=== PATIENT | female | born 1990 | race American Indian/Alaskan Native ===

== ENCOUNTER 2021-04-02 07:48 | Observation (INO) | payer OTHER ==
--- NOTE | 2021-04-02 08:04 | Emergency Department Report ---
ED Abdominal Pain HPI - General Chief Complaint: Abdominal Pain Stated Complaint: ABD PAIN X2 DAYS PUI?: Yes Time Seen by Provider: 04/02/21 08:02 Source: patient, EMS ( EMS documentation not available at time of chart di ctation ), RN notes reviewed Mode of arrival: Stretcher Limitations: No Limitations, Physical Limitation - History of Present Illness Initial Comments: The patient was evaluated in the emergency department for symptoms described in the history of present illness. He/she was evaluated in the context of the g lobal COVID-19 pandemic, which necessitated consideration that the patient might be at risk for infection with the virus that causes COVID-19. Institutional protocols and algorithms that pertain to the evaluation of patients at risk for COVID-19 are in a state of rapid change based on information released by regulatory bodies including the CDC and federal and state organizations. These policies and algorithms were followed during the patient's care in the emergency department. Please note that these policies, procedures and recommendations changed on a rapid basis. Patient is a 30-year-old female. She is not known to myself previously. She states that she is not . She believes that she has a history of kidney infection and/or renal colic. She presents to the ER today with a complaint of nontraumatic epigastric and right upper quadrant pain that radiates to the back. There is nausea. She denies urinary symptoms. She denies fever. Her pain is sharp and intense. It increases with palpation. It decreases with rest, position, and hydromorphone. This is more intense and is similar to prior episodes of upper abdominal pain that she has experienced in the past. She denies Covid symptomatology. MD Complaint: abdominal pain -: Gradual Location: RUQ, epigastric Radiation: R flank, back Severity: severe Severity scale (0 -10): 10 Consistency: intermittent Improves With: medication Worsens With: other (Per history of present illness) Associated Symptoms: nausea - Related Data Home Medications Medication Instructions Recorded Confirmed Last Taken No Known Home Medications [No 04/02/21 04/02/21 Unknown Reported Home Medications] Allergies Allergy/AdvReac Type Severity Reaction Status Date / Time No Known Allergies Allergy Unverified 04/02/21 07:52 ED Review of Systems ROS: Stated complaint: ABD PAIN X2 DAYS Other details as noted in HPI Constitutional: malaise, weakness. denies: fever Eyes: denies: eye discharge ENT: denies: epistaxis Respiratory: denies: cough Cardiovascular: denies: chest pain Gastrointestinal: abdominal pain, nausea Genitourinary: denies: dysuria Musculoskeletal: back pain Neurological: weakness Psychiatric: anxiety ED Past Medical Hx - Past Medical History Previous Medical History?: Yes Additional medical history: hxo kidney infection - Social History Smoking Status: Current Every Day Smoker - Medications Home Medications: Home Medications Medication Instructions Recorded Confirmed Last Taken Type No Known Home Medications [No 04/02/21 04/02/21 Unknown History Reported Home Medications] ED Physical Exam - General Limitations: Physical Limitation General appearance: alert, anxious, in distress, obese - Head Head exam: Present: atraumatic, normocephalic - Eye Eye exam: Present: normal appearance, EOMI. Absent: nystagmus - ENT ENT exam: Present: normal exam, normal orophraynx, mucous membranes moist, normal external ear exam - Neck Neck exam: Present: normal inspection, full ROM. Absent: tenderness, meningismus - Respiratory Respiratory exam: Present: normal lung sounds bilaterally. Absent: respiratory distress, wheezes, rales, rhonchi, stridor, decreased breath sounds - Cardiovascular Cardiovascular Exam: Present: regular rate, normal rhythm, normal heart sounds. Absent: bradycardia, tachycardia, irregular rhythm, systolic murmur, diastolic murmur, rubs, gallop - GI/Abdominal GI/Abdominal exam: Present: soft, tenderness (Right upper quadrant pain, tenderness, voluntary guarding), guarding, rebound. Absent: distended, pulsati le mass - Extremities Exam Extremities exam: Present: normal inspection, full ROM, other (2+ pulses noted in the bilateral upper and lower extremities. There is no palpable cord. negative Homans sign. Muscular compartments are soft. The pelvis is stable.). Absent: pedal edema, calf tenderness - Back Exam Back exam: Present: normal inspection, CVA tenderness (R). Absent: tenderness, CVA tenderness (L), muscle spasm, paraspinal tenderness, vertebral tenderness - Neurological Exam Neurological exam: Present: alert, oriented X3, other (No facial droop. Tongue midline. Extraocular movements intact bilaterally. Facial sensation intact to light touch in V1, V2, V3 distribution bilaterally. 5 and a 5 strength in 4 extremities. Sensation intact to light touch in 4 extremities.). Absent: motor sensory deficit - Psychiatric Psychiatric exam: Present: anxious - Skin Skin exam: Present: warm, dry, intact, normal color. Absent: rash ED Course Vital Signs 04/02/21 04/02/21 04/02/21 07:56 08:19 08:25 Temperature 98.5 F Pulse Rate 94 H 96 H Respiratory 20 14 20 Rate Blood Pressure Blood Pressure 129/79 [Left] O2 Sat by Pulse 98 98 100 Oximetry 04/02/21 04/02/21 04/02/21 08:31 08:45 09:31 Temperature Pulse Rate 93 H 90 79 Respiratory 24 19 16 Rate Blood Pressure 118/75 Blood Pressure [Left] O2 Sat by Pulse 97 98 Oximetry ED Medical Decision Making - Lab Data Result diagrams: 04/02/21 08:09 04/02/21 Unknown Vital Signs 04/02/21 04/02/21 04/02/21 07:56 08:19 08:25 Temperature 98.5 F Pulse Rate 94 H 96 H Respiratory 20 14 20 Rate Blood Pressure Blood Pressure 129/79 [Left] O2 Sat by Pulse 98 98 100 Oximetry 04/02/21 04/02/21 04/02/21 08:31 08:45 09:31 Temperature Pulse Rate 93 H 90 79 Respiratory 24 19 16 Rate Blood Pressure 118/75 Blood Pressure [Left] O2 Sat by Pulse 97 98 Oximetry Lab Results 04/02/21 04/02/21 04/02/21 Range/Units 08:09 08:09 08:09 WBC 8.8 (4.5-11.0) K/mm3 RBC 4.37 (3.65-5.03) M/mm3 Hgb 13.2 (10.1-14.3) gm/dl Hct 39.1 (30.3-42.9) % MCV 89 (79-97) fl MCH 30 (28-32) pg MCHC 34 (30-34) % RDW 14.0 (13.2-15.2) % Plt Count 426 (140-440) K/mm3 Lymph % (Auto) 29.3 (13.4-35.0) % Bates % (Auto) 8.0 H (0.0-7.3) % Eos % (Auto) 0.6 (0.0-4.3) % Baso % (Auto) 0.6 (0.0-1.8) % Lymph # (Auto) 2.6 (1.2-5.4) K/mm3 Bates # (Auto) 0.7 (0.0-0.8) K/mm3 Eos # (Auto) 0.1 (0.0-0.4) K/mm3 Baso # (Auto) 0.0 (0.0-0.1) K/mm3 Seg Neutrophils % 61.5 (40.0-70.0) % Seg Neutrophils # 5.4 (1.8-7.7) K/mm3 Sodium (137-145) mmol/L Potassium (3.6-5.0) mmol/L Chloride (98-107) mmol/L Carbon Dioxide (22-30) mmol/L Anion Gap mmol/L BUN (7-17) mg/dL Creatinine (0.6-1.2) mg/dL Estimated GFR ml/min BUN/Creatinine Ratio % Glucose (65-100) mg/dL Lactic Acid (0.7-2.0) mmol/L Calcium (8.4-10.2) mg/dL Magnesium 2.20 (1.7-2.3) mg/dL Total Bilirubin 2.70 H (0.1-1.2) mg/dL Direct Bilirubin 1.1 H (0-0.2) mg/dL Indirect Bilirubin 1.6 mg/dL AST 164 H (5-40) units/L ALT 264 H (7-56) units/L Alkaline Phosphatase 203 H (35-129) units/L Total Creatine Kinase 165 H (30-135) units/L Total Protein 8.4 H (6.3-8.2) g/dL Albumin 4.2 (3.9-5) g/dL Albumin/Globulin Ratio 1.0 % Lipase 29 (13-60) units/L HCG, Quant < 2 (0-4) mIU/mL Urine Color (Yellow) Urine Turbidity (Clear) Urine pH (5.0-7.0) Ur Specific Hardtner (1.003-1.030) Urine Protein (Negative) mg/dL Urine Glucose (UA) (Negative) mg/dL Urine Ketones (Negative) mg/dL Urine Blood (Negative) Urine Nitrite (Negative) Urine Bilirubin (Negative) Urine Ictotest (Negative) Urine Urobilinogen (<2.0) mg/dL Ur Leukocyte Esterase (Negative) Urine WBC (Auto) (0.0-6.0) /HPF Urine RBC (Auto) (0.0-6.0) /HPF U Epithel Cells (Auto) (0-13.0) /HPF Urine Mucus /HPF Urine Opiates Screen Urine Methadone Screen Acetaminophen (10.0-30.0) ug/mL Ur Barbiturates Screen Ur Phencyclidine Scrn Ur Amphetamines Screen U Benzodiazepines Scrn Urine Cocaine Screen U Marijuana (THC) Screen Drugs of Abuse Note 04/02/21 04/02/21 04/02/21 Range/Units 08:12 08:12 09:26 WBC (4.5-11.0) K/mm3 RBC (3.65-5.03) M/mm3 Hgb (10.1-14.3) gm/dl Hct (30.3-42.9) % MCV (79-97) fl MCH (28-32) pg MCHC (30-34) % RDW (13.2-15.2) % Plt Count (140-440) K/mm3 Lymph % (Auto) (13.4-35.0) % Bates % (Auto) (0.0-7.3) % Eos % (Auto) (0.0-4.3) % Baso % (Auto) (0.0-1.8) % Lymph # (Auto) (1.2-5.4) K/mm3 Bates # (Auto) (0.0-0.8) K/mm3 Eos # (Auto) (0.0-0.4) K/mm3 Baso # (Auto) (0.0-0.1) K/mm3 Seg Neutrophils % (40.0-70.0) % Seg Neutrophils # (1.8-7.7) K/mm3 Sodium (137-145) mmol/L Potassium (3.6-5.0) mmol/L Chloride (98-107) mmol/L Carbon Dioxide (22-30) mmol/L Anion Gap mmol/L BUN (7-17) mg/dL Creatinine (0.6-1.2) mg/dL Estimated GFR ml/min BUN/Creatinine Ratio % Glucose (65-100) mg/dL Lactic Acid (0.7-2.0) mmol/L Calcium (8.4-10.2) mg/dL Magnesium (1.7-2.3) mg/dL Total Bilirubin (0.1-1.2) mg/dL Direct Bilirubin (0-0.2) mg/dL Indirect Bilirubin mg/dL AST (5-40) units/L ALT (7-56) units/L Alkaline Phosphatase (35-129) units/L Total Creatine Kinase (30-135) units/L Total Protein (6.3-8.2) g/dL Albumin (3.9-5) g/dL Albumin/Globulin Ratio % Lipase (13-60) units/L HCG, Quant (0-4) mIU/mL Urine Color Marcella (Yellow) Urine Turbidity Clear (Clear) Urine pH 5.0 (5.0-7.0) Ur Specific Hardtner 1.032 H (1.003-1.030) Urine Protein 100 mg/dl (Negative) mg/dL Urine Glucose (UA) 50 (Negative) mg/dL Urine Ketones Neg (Negative) mg/dL Urine Blood Neg (Negative) Urine Nitrite Neg (Negative) Urine Bilirubin Mod (Negative) Urine Ictotest Positive (Negative) Urine Urobilinogen 4.0 (<2.0) mg/dL Ur Leukocyte Esterase Mod (Negative) Urine WBC (Auto) 74.0 H (0.0-6.0) /HPF Urine RBC (Auto) 38.0 (0.0-6.0) /HPF U Epithel Cells (Auto) 8.0 (0-13.0) /HPF Urine Mucus 3+ /HPF Urine Opiates Screen Negative Urine Methadone Screen Negative Acetaminophen 5.0 L (10.0-30.0) ug/mL Ur Barbiturates Screen Negative Ur Phencyclidine Scrn Negative Ur Amphetamines Screen Negative U Benzodiazepines Scrn Negative Urine Cocaine Screen Negative U Marijuana (THC) Screen Negative Drugs of Abuse Note Disclamer 04/02/21 04/02/21 Range/Units 09:26 Unknown WBC (4.5-11.0) K/mm3 RBC (3.65-5.03) M/mm3 Hgb (10.1-14.3) gm/dl Hct (30.3-42.9) % MCV (79-97) fl MCH (28-32) pg MCHC (30-34) % RDW (13.2-15.2) % Plt Count (140-440) K/mm3 Lymph % (Auto) (13.4-35.0) % Bates % (Auto) (0.0-7.3) % Eos % (Auto) (0.0-4.3) % Baso % (Auto) (0.0-1.8) % Lymph # (Auto) (1.2-5.4) K/mm3 Bates # (Auto) (0.0-0.8) K/mm3 Eos # (Auto) (0.0-0.4) K/mm3 Baso # (Auto) (0.0-0.1) K/mm3 Seg Neutrophils % (40.0-70.0) % Seg Neutrophils # (1.8-7.7) K/mm3 Sodium 141 (137-145) mmol/L Potassium 4.0 (3.6-5.0) mmol/L Chloride 103.2 (98-107) mmol/L Carbon Dioxide 19 L (22-30) mmol/L Anion Gap 23 mmol/L BUN 9 (7-17) mg/dL Creatinine 0.7 (0.6-1.2) mg/dL Estimated GFR > 60 ml/min BUN/Creatinine Ratio 13 % Glucose 112 H (65-100) mg/dL Lactic Acid 2.30 H* (0.7-2.0) mmol/L Calcium 9.9 (8.4-10.2) mg/dL Magnesium (1.7-2.3) mg/dL Total Bilirubin (0.1-1.2) mg/dL Direct Bilirubin (0-0.2) mg/dL Indirect Bilirubin mg/dL AST (5-40) units/L ALT (7-56) units/L Alkaline Phosphatase (35-129) units/L Total Creatine Kinase (30-135) units/L Total Protein (6.3-8.2) g/dL Albumin (3.9-5) g/dL Albumin/Globulin Ratio % Lipase (13-60) units/L HCG, Quant (0-4) mIU/mL Urine Color (Yellow) Urine Turbidity (Clear) Urine pH (5.0-7.0) Ur Specific Hardtner (1.003-1.030) Urine Protein (Negative) mg/dL Urine Glucose (UA) (Negative) mg/dL Urine Ketones (Negative) mg/dL Urine Blood (Negative) Urine Nitrite (Negative) Urine Bilirubin (Negative) Urine Ictotest (Negative) Urine Urobilinogen (<2.0) mg/dL Ur Leukocyte Esterase (Negative) Urine WBC (Auto) (0.0-6.0) /HPF Urine RBC (Auto) (0.0-6.0) /HPF U Epithel Cells (Auto) (0-13.0) /HPF Urine Mucus /HPF Urine Opiates Screen Urine Methadone Screen Acetaminophen (10.0-30.0) ug/mL Ur Barbiturates Screen Ur Phencyclidine Scrn Ur Amphetamines Screen U Benzodiazepines Scrn Urine Cocaine Screen U Marijuana (THC) Screen Drugs of Abuse Note - EKG Data -: EKG Interpreted by Me EKG shows normal: sinus rhythm Rate: normal - EKG Data When compared to previous EKG there are: previous EKG unavailable 04/02/21 12:05 EKG is interpreted at 08: 4 0 Sinus rhythm, 73 bpm. Normal axis, normal intervals, motion artifact, b orderline high left ventricular voltage. Abnormal EKG. Not a STEMI. - Radiology Data Radiology results: pending, report reviewed, image reviewed ULTRASOUND ABDOMEN, LIMITED (RIGHT UPPER QUADRANT) INDICATION: abd pain transaminits COMPARISON: CT abdomen and pelvis today LIMITATIONS: None FINDINGS: Pancreas: Visualized portion shows no significant abnormality. Liver: Slight patchy fatty infiltration. Liver is at the upper end of the normal range in size and has a length of 17.9 cm. No focal masses are seen. Gallbladder: Several gallstones are seen. No gallbladder wall thickening is noted. Bile ducts: Normal. Common Bile Duct measures 5 mm. Right Kidney: Visualized portions show no abnormality. Free fluid: None. Additional Findings: None. IMPRESSION: Cholelithiasis. No gallbladder wall thickening is seen. However, the technologist reports a positive Talley's sign. Signer Name: Praful Kaur MD Signed: 04/02/2021 10:[address] ABDOMEN AND PELVIS WITH CONTRAST INDICATION: Left side and back pain CONTRAST: 100 cc Omnipaque 300 IV COMPARISON: None available. All CT scans at this location are performed using CT dose reduction for ALARA by means of automated exposure control. FINDINGS: Lung bases are clear. No pneumoperitoneum is seen. Gallbladder shows what may be small calculi but no wall thickening seen. No biliary dilatation is noted.. Liver shows mild fatty infiltration and is moderately enlarged. Hepatic length measures 21.4 cm. Spleen is not enlarged. No abdominal masses are seen. No lymphadenopathy is noted. No urinary or bowel obstructive changes are seen. The appendix appears within normal limits except for the tip which is mildly dilated to 8 mm. However, the extreme tip shows gas and with wall thickening and I do not see surrounding inflammation. Small amount of high density material is seen in the expanded tip. I suspect this is a normal variant rather than an acute process. Small bilateral ovarian cysts are seen measuring up to 2.2 cm on the right, probably physiologic in this young patient. A small amount of free fluid is seen. No definite inflammatory changes are noted. IMPRESSION: 1. No abnormality is seen to explain the patient's left-sided symptomatology 2. Probable normal variant of the appendiceal anatomy as above 3. Small physiologic type ovarian cysts, greater on the right. Small amount of free fluid scattered in the pelvis possibly could relate to recent cyst rupture, more likely from the right. 4. Possible minimal cholelithiasis without acute change seen Signer Name: Praful Kaur MD Signed: 04/02/2021 10:21 AM Workstation Name: [id number] - Medical Decision Making Differential diagnosis, including but not limited to: Cholecystitis, renal colic, pyelonephritis, obstruction Assessment and plan: 30-year-old female, who is afebrile, with relatively tachycardic heart rate in the mid 90s, presenting with right upper quadrant pain and flank pain, found to have evidence of transaminitis, hyperbilirubinemia, pyuria. She is markedly tender, ruling in for systemic inflammatory response syndrome. She has an elevated lactic acid, uncertain of type I or type II lactic acidosis. Patient will be treated aggressively with pain medication, antibiotics, and appropriate IV fluids. Blood cultures, urine cultures will be obtained. Right upper quadrant ultrasound demonstrates positive sonographic Talley sign, as well as cholelithiasis. CT scan abdomen pelvis essentially unremarkable. Given concern for cholecystitis, transaminitis, and sepsis, have recommended admission to the medical service for the aforementioned conditions. The patient is agreeable to this plan of care. Contacted general surgeon on-call, Dr. Sánchez. Discussed history, physical, laboratory studies, imaging studies and plan of care/overall clinical impression. She will follow in consultation. Recommends fluids, antibiotics, n.p.o. status, and supportive care. Hospital physician, Dr. Simental, to admit patient to the medical service. Critical Care Time: Yes Critical care time in (mins) excluding proc time.: 35 Critical care attestation.: If time is entered above; I have spent that time in minutes in the direct care of this critically ill patient, excluding procedure time. ED Disposition Clinical Impression: Cholecystitis, SIRS (systemic inflammatory response syndrome), Transaminitis, Pyelonephritis Disposition: 09 ADMITTED INPATIENT Is pt being admited?: Yes Does the pt Need Aspirin: No Condition: Good Instructions: Abdominal Pain (ED) Referrals: PRIMARY CARE, [Primary Care Provider] - 3-5 Days
[2021-04-02 08:30] LABS: Basophils % (Auto) 0.6 % (0.0-1.8); Eosinophils # (Auto) 0.1 K/mm3 (0.0-0.4); Eosinophils % (Auto) 0.6 % (0.0-4.3); Hematocrit 39.1 % (30.3-42.9); Hemoglobin 13.2 gm/dl (10.1-14.3); Lymphocytes # (Auto) 2.6 K/mm3 (1.2-5.4); Lymphocytes % (Auto) 29.3 % (13.4-35.0); Mean Corpuscular HGB Conc 34 % (30-34); Mean Corpuscular Volume 89 fl (79-97); Monocytes # (Auto) 0.7 K/mm3 (0.0-0.8); Platelet Count 426 K/mm3 (140-440); Red Blood Count 4.37 M/mm3 (3.65-5.03)
[2021-04-02 08:35] LABS: Bilirubin,Urine MOD (Negative); Blood,Urine NEG (Negative); Color,Urine Amber (Yellow); Mucus,Urine 3+ /HPF
[2021-04-02 08:40] LABS: Amphetamine Screen,Urine Negative; Benzodiazepines Screen,Urine Negative; Cannabinoid Screen,Urine Negative; Cocaine Screen,Urine Negative; Methadone Screen,Urine Negative; Opiate Screen,Urine Negative
[2021-04-02 08:52] LABS: Albumin 4.2 g/dL (3.9-5); Bilirubin,Direct 1.1 mg/dL (0-0.2)
[2021-04-02] MEDS ORDERED: ONDANSETRON 4 MG/2 ML INJ IV ONE ×2 (09:14→09:36)
[2021-04-02] MEDS ORDERED: HYDROmorphone 1 MG/1 ML INJ IV ONE ×3 (09:14→12:14)
[2021-04-02] MEDS ORDERED: LACTATED RINGERS 1,000 ML IV ONE (09:14)
[2021-04-02 09:15] LABS: Ictotest,Urine Positive (Negative)
[2021-04-02 09:25] LABS: BUN/Creatinine Ratio 13; Blood Urea Nitrogen 9 mg/dL (7-17); Calcium 9.9 mg/dL (8.4-10.2); Hemolysis Index 11
--- NOTE | 2021-04-02 11:25 | Cat Scan Report ---
CT ABDOMEN AND PELVIS WITH CONTRAST INDICATION: Left side and back pain CONTRAST: 100 cc Omnipaque 300 IV COMPARISON: None available. All CT scans at this location are performed using CT dose reduction for ALARA by means of automated e xposure control. FINDINGS: Lung bases are clear. No pneumoperitoneum is seen. Gallbladder shows what may be small calc jonathan but no wall thickening seen. No biliary dilatation is noted.. Liver shows mild fatty infiltration and is moderately enlarged. Hepatic length measures 21.4 cm. Spleen is not enlarged. No abdominal ma sses are seen. No lymphadenopathy is noted. No urinary or bowel obstructive changes are seen. The appendix appears within normal limits except for the tip which is mildly dilated to 8 mm. However , the extreme tip shows gas and with wall thickening and I do not see surrounding inflammation. Small amount of high density material is seen in the expanded tip. I suspect this is a normal variant rath er than an acute process. Small bilateral ovarian cysts are seen measuring up to 2.2 cm on the right, probably physiologic in t his young patient. A small amount of free fluid is seen. No definite inflammatory changes are noted. IMPRESSION: 1. No abnormality is seen to explain the patient's left-sided symptomatology 2. Probable normal variant of the appendiceal anatomy as above 3. Small physiologic type ovarian cysts, greater on the right. Small amount of free fluid scattered i n the pelvis possibly could relate to recent cyst rupture, more likely from the right. 4. Possible minimal cholelithiasis without acute change seen Signer Name: Praful Kaur MD Signed: 04/02/2021 11:21 AM Workstation Name: [id number]
--- NOTE | 2021-04-02 11:26 | Ultrasound Report ---
ULTRASOUND ABDOMEN, LIMITED (RIGHT UPPER QUADRANT) INDICATION: abd pain transaminits COMPARISON: CT abdomen and pelvis today LIMITATIONS: None FINDINGS: Pancreas: Visualized portion shows no significant abnormality. Liver: Slight patchy fatty infiltration. Liver is at the upper end of the normal range in size and li s a length of 17.9 cm. No focal masses are seen. Gallbladder: Several gallstones are seen. No gallbladder wall thickening is noted. Bile ducts: Normal. Common Bile Duct measures 5 mm. Right Kidney: Visualized portions show no abnormality. Free fluid: None. Additional Findings: None. IMPRESSION: Cholelithiasis. No gallbladder wall thickening is seen. However, the technologist reports a positive Talley's sign. Signer Name: Praful Kaur MD Signed: 04/02/2021 11:22 AM Workstation Name: [id number]
[2021-04-02] MEDS ORDERED: PIPERACIL/TAZOBACTA 4.5/NS 100 4.5 GM/100 ML VIAL IV ONE (11:38)
[2021-04-02] MEDS ORDERED: LACTATED RINGERS 1,500 ML IV ONE (11:43)
[2021-04-02] MEDS ORDERED: HYDROmorphone 1 MG/1 ML INJ ONE (12:04)
[2021-04-02 12:20] LABS: Hepatitis C Virus Antibody Non-Reactive (NonReactive)
[2021-04-02 12:30] LABS: Hepatitis B Surface Antigen Nonreactive (Negative)
--- NOTE | 2021-04-02 12:33 | History and Physical Report ---
History of Present Illness Chief complaint: I have abdominal pain History of present illness: 30 YO Female with Nicotine Dependence, Nephrolithiasis presents to ED for evaluation. Patient reports "I have abdominal pain". Patient states that she has experienced abdominal pain over the past 2 days with persistent symptoms over the same timeframe. Patient states that pain is 10/10, intermittent, radiates to the right flank and back, associated with nausea, worsened with palpation, decreased with rest and position stability. Patient denies oral intake over the last 2 days due to the aforementioned symptoms. EMS was notified and upon arrival the patient was found to be in distress and subsequently transported to [facility] for further care and evaluation of the aforementioned symptoms. The patient was seen and evaluated in the emergency department. All lab and imaging studies reviewed. Patient underwent CT scan of the abdomen and pelvis as well as abdominal ultrasound which revealed findings consistent with symptomatic cholelithiasis, metabolic acidosis, elevated liver function test, as well as abnormal appearing appendix. Surgical team consulted. Patient placed in observation status and admitted to medical floor. Patient treated with IV fluid resuscitation therapy, bowel rest, pain control. Patient denies fever, chills, chest pain, palpitation, productive cough, skin rash, recent ill contacts, ingestion of food/water from new or different sources, or known exposure to COVID-19. No prior admission for review. No medication listed at time of admission for reconciliation. Past History Past Medical History: other (See HPI) Past Surgical History: No surgical history, Other (Reviewed) Social history: single, smoking Family history: diabetes, hypertension Medications and Allergies Allergies Allergy/AdvReac Type Severity Reaction Status Date / Time No Known Allergies Allergy Unverified 04/02/21 07:52 Home Medications Medication Instructions Recorded Confirmed Last Taken Type No Known Home Medications [No 04/02/21 04/02/21 Unknown History Reported Home Medications] Active Meds: Active Medications Lactated Ringer's (Lactated Ringers) 1,500 mls @ 999 mls/hr IV BOLUS ONE Stop: 04/02/21 13:13 Review of Systems Constitutional: no weight loss, no weight gain, no fever, no chills Ears, nose, mouth and throat: no ear pain, no ear discharge, no nasal congestion, no nasal discharge Breasts: no change in shape, no swelling, no mass Cardiovascular: no chest pain, no palpitations, no rapid/irregular heart beat, no edema, no lightheadedness Respiratory: no cough, no cough with sputum, no hemoptysis Gastrointestinal: abdominal pain, nausea, no vomiting, no diarrhea, no constipation, no coffee ground emesis, no hematochezia, no loss of appetite Genitourinary Female: no pelvic pain, no flank pain, no dysuria, no urinary frequency, no urgency Rectal: no pain, no incontinence, no bleeding Musculoskeletal: no neck stiffness, no shooting arm pain, no low back pain, no shooting leg pain, no leg numbness/tingling Integumentary: no rash, no redness, no sores, no wounds, no boils Neurological: no head injury, no paralysis, no parathesias, no numbness, no sei zures, no syncope, no ataxia Psychiatric: no anxiety, no change in sleep habits, no insomnia Endocrine: no cold intolerance, no heat intolerance, no excessive thirst, no polyuria, no nocturia Hematologic/Lymphatic: no easy bruising, no lymphadenopathy Allergic/Immunologic: no urticaria, no allergic rhinitis, no wheezing, no anaphylaxis Exam - Constitutional Vitals: Temp Pulse Resp BP Pulse Ox 98.5 F 79 16 118/75 98 04/02/21 07:56 04/02/21 09:31 04/02/21 09:31 04/02/21 09:31 04/02/21 09:31 General appearance: Present: mild distress - EENT Eyes: Present: PERRL ENT: hearing intact, clear oral mucosa - Neck Neck: Present: supple, normal ROM - Respiratory Respiratory effort: normal Respiratory: bilateral: CTA - Cardiovascular Heart Sounds: Present: S1 & S2. Absent: rub, click - Extremities Extremities: pulses symmetrical, No edema Peripheral Pulses: within normal limits - Abdominal General gastrointestinal: Present: soft, tender, non-distended, normal bowel sounds Localized gastrointestinal: tender: RLQ Female genitourinary: Present: normal - Integumentary Integumentary: Present: clear, warm, dry - Musculoskeletal Musculoskeletal: gait normal, strength equal bilaterally - Psychiatric Psychiatric: appropriate mood/affect, intact judgment & insight - Neurologic Neurologic: CNII-XII intact, moves all extremities Results - Labs CBC & Chem 7: 04/02/21 08:09 04/02/21 Unknown Labs: Abnormal lab results 04/02/21 04/02/2121 Range/Units 08:09 08:09 08:12 [place] % (Auto) 8.0 H (0.0-7.3) % Carbon Dioxide (22-30) mmol/L Glucose (65-100) mg/dL Lactic Acid (0.7-2.0) mmol/L Total Bilirubin 2.70 H (0.1-1.2) mg/dL Direct Bilirubin 1.1 H (0-0.2) mg/dL AST 164 H (5-40) units/L ALT 264 H (7-56) units/L Alkaline Phosphatase 203 H (35-129) units/L Total Creatine Kinase 165 H (30-135) units/L Total Protein 8.4 H (6.3-8.2) g/dL Ur Specific [place] 1.032 H (1.003-1.030) Urine WBC (Auto) 74.0 H (0.0-6.0) /HPF Acetaminophen (10.0-30.0) ug/mL 04/02/21 04/02/21 04/02/21 Range/Units 09:26 09:26 Unknown [place] % (Auto) (0.0-7.3) % Carbon Dioxide 19 L (22-30) mmol/L Glucose 112 H (65-100) mg/dL Lactic Acid 2.30 H* (0.7-2.0) mmol/L Total Bilirubin (0.1-1.2) mg/dL Direct Bilirubin (0-0.2) mg/dL AST (5-40) units/L ALT (7-56) units/L Alkaline Phosphatase (35-129) units/L Total Creatine Kinase (30-135) units/L Total Protein (6.3-8.2) g/dL Ur Specific [place] (1.003-1.030) Urine WBC (Auto) (0.0-6.0) /HPF Acetaminophen 5.0 L (10.0-30.0) ug/mL Assessment and Plan - Patient Problems (1) SIRS (systemic inflammatory response syndrome) Current Visit: Yes Status: Acute Plan to address problem: Supportive care, continue medical management, empiric IV antibiotic therapy x1 dose, repeat CBC in a.m., (2) Symptomatic cholelithiasis Current Visit: Yes Status: Acute Plan to address problem: CT scan abdomen and pelvis, serial abdominal exam, abdominal ultrasound, supportive care, further care and evaluation as per surgical team. (3) Disorder of appendix Current Visit: Yes Status: Acute Plan to address problem: CT scan abdomen and pelvis, supportive care, surgical team consulted. Continue management as per team (4) Metabolic acidosis Current Visit: Yes Status: Acute Plan to address problem: BMP, IV fluid resuscitation therapy, repeat BMP in a.m. (5) Elevated liver function tests Current Visit: Yes Status: Acute Plan to address problem: Supportive care, CT scan abdomen and pelvis, abdominal ultrasound, continue medical management. (6) DVT prophylaxis Current Visit: Yes Status: Acute Plan to address problem: SCD to bilateral lower extremities while in bed, patient is ambulatory
[2021-04-02] MEDS ORDERED: HYDROmorphone 1 MG/1 ML INJ IV PRN (12:37)
[2021-04-02] MEDS ORDERED: ACETAMINOPHEN 325 MG TAB PO PRN (12:37)
[2021-04-02] MEDS ORDERED: ONDANSETRON 4 MG/2 ML INJ IV PRN (12:37)
[2021-04-02] MEDS ORDERED: ALBUTEROL 2.5 MG/3 ML NEBU IH PRN (12:37)
--- NOTE | 2021-04-02 14:16 | Consultation ---
History of Present Illness Consult date: 04/02/21 Reason for consult: gallstones - History of present illness History of present illness: 30-year-old female presents to the emergency room today with acute right upper quadrant pain. Patient says that she has had this pain before off-and-on but never to this 10 out of 10 extreme or lasting this long. Patient had a CT scan of the abdomen and pelvis that showed gallstones and no other acute pathology, followed by an abdominal ultrasound that also showed gallstones but no acute inflammation however the patient did have positive Talley sign upon examination. Patient denies any nausea vomiting at this time. Patient was also found to have elevated LFTs. Past History Past Medical History: other (See HPI) Past Surgical History: No surgical history, Other (Reviewed) Social history: single, smoking Family history: diabetes, hypertension Medications and Allergies Allergies Allergy/AdvReac Type Severity Reaction Status Date / Time No Known Allergies Allergy Unverified 04/02/21 07:52 Home Medications Medication Instructions Recorded Confirmed Last Taken Type No Known Home Medications [No 04/02/21 04/02/21 Unknown History Reported Home Medications] Active Meds: Active Medications Acetaminophen (Acetaminophen 325 Mg Tab) 650 mg PO Q4H PRN PRN Reason: Pain MILD(1-3)/Fever >100.5/YODER Albuterol (Albuterol 2.5 Mg/3 Ml Nebu) 2.5 mg IH Q4HRT PRN PRN Reason: Shortness Of Breath Hydromorphone HCl (Hydromorphone 1 Mg/1 Ml Inj) 0.5 mg IV Q12H PRN PRN Reason: Pain , Severe (7-10) Ondansetron HCl (Ondansetron 4 Mg/2 Ml Inj) 4 mg IV Q8H PRN PRN Reason: Nausea And Vomiting Oxycodone/Acetaminophen (Oxycodone /Acetaminophen 5-325mg Tab) 1 tab PO Q16H PRN PRN Reason: Pain, Moderate (4-6) Sodium Chloride (Sodium Chloride 0.9% 10 Ml Flush Syringe) 10 ml IV BID VAN Sodium Chloride (Sodium Chloride 0.9% 10 Ml Flush Syringe) 10 ml IV PRN PRN PRN Reason: LINE FLUSH Review of Systems All systems: negative - Gastrointestinal abdominal pain, no nausea, no vomiting Exam Vital Signs Temp Pulse Resp BP Pulse Ox 98.5 F 94 H 20 129/79 98 04/02/21 07:56 04/02/21 07:56 04/02/21 07:56 04/02/21 07:56 04/02/21 07:56 - General physical appearance Positive: well developed, no distress, moderate pain - Eyes Positive: PERRL - ENT Positive: no hearing loss - Respiratory Positive: normal expansion, normal respiratory effort - Cardiovascular Heart Sounds: Present: S1 & S2 - Extremities Extremities: no ischemia - Abdomen Abdomen: Present: soft, other (Tender to palpation in the right upper quadrant, no rebound or guarding) Results - Labs 04/02/21 08:09 04/02/21 Unknown Abnormal lab results 04/02/21 04/02/21 04/02/21 Range/Units 08:09 08:09 08:12 [place] % (Auto) 8.0 H (0.0-7.3) % Carbon Dioxide (22-30) mmol/L Glucose (65-100) mg/dL Lactic Acid (0.7-2.0) mmol/L Total Bilirubin 2.70 H (0.1-1.2) mg/dL Direct Bilirubin 1.1 H (0-0.2) mg/dL AST 164 H (5-40) units/L ALT 264 H (7-56) units/L Alkaline Phosphatase 203 H (35-129) units/L Total Creatine Kinase 165 H (30-135) units/L Total Protein 8.4 H (6.3-8.2) g/dL Ur Specific [place] 1.032 H (1.003-1.030) Urine WBC (Auto) 74.0 H (0.0-6.0) /HPF Acetaminophen (10.0-30.0) ug/mL 04/02/21 04/02/21 04/02/21 Range/Units 09:26 09:26 Unknown [place] % (Auto) (0.0-7.3) % Carbon Dioxide 19 L (22-30) mmol/L Glucose 112 H (65-100) mg/dL Lactic Acid 2.30 H* (0.7-2.0) mmol/L Total Bilirubin (0.1-1.2) mg/dL Direct Bilirubin (0-0.2) mg/dL AST (5-40) units/L ALT (7-56) units/L Alkaline Phosphatase (35-129) units/L Total Creatine Kinase (30-135) units/L Total Protein (6.3-8.2) g/dL Ur Specific [place] (1.003-1.030) Urine WBC (Auto) (0.0-6.0) /HPF Acetaminophen 5.0 L (10.0-30.0) ug/mL Diabetes panel 04/02/21 04/02/21 Range/Units 08:09 Unknown Sodium 141 (137-145) mmol/L Potassium 4.0 (3.6-5.0) mmol/L Chloride 103.2 (98-107) mmol/L Carbon Dioxide 19 L (22-30) mmol/L BUN 9 (7-17) mg/dL Creatinine 0.7 (0.6-1.2) mg/dL Glucose 112 H (65-100) mg/dL Calcium 9.9 (8.4-10.2) mg/dL AST 164 H (5-40) units/L ALT 264 H (7-56) units/L Alkaline Phosphatase 203 H (35-129) units/L Total Protein 8.4 H (6.3-8.2) g/dL Albumin 4.2 (3.9-5) g/dL Calcium panel 04/02/21 04/02/21 Range/Units 08:09 Unknown Calcium 9.9 (8.4-10.2) mg/dL Albumin 4.2 (3.9-5) g/dL Pituitary panel 04/02/21 Range/Units Unknown Sodium 141 (137-145) mmol/L Potassium 4.0 (3.6-5.0) mmol/L Chloride 103.2 (98-107) mmol/L Carbon Dioxide 19 L (22-30) mmol/L BUN 9 (7-17) mg/dL Creatinine 0.7 (0.6-1.2) mg/dL Glucose 112 H (65-100) mg/dL Calcium 9.9 (8.4-10.2) mg/dL Adrenal panel 04/02/21 04/02/21 Range/Units 08:09 Unknown Sodium 141 (137-145) mmol/L Potassium 4.0 (3.6-5.0) mmol/L Chloride 103.2 (98-107) mmol/L Carbon Dioxide 19 L (22-30) mmol/L BUN 9 (7-17) mg/dL Creatinine 0.7 (0.6-1.2) mg/dL Glucose 112 H (65-100) mg/dL Calcium 9.9 (8.4-10.2) mg/dL Total Bilirubin 2.70 H (0.1-1.2) mg/dL AST 164 H (5-40) units/L ALT 264 H (7-56) units/L Alkaline Phosphatase 203 H (35-129) units/L Total Protein 8.4 H (6.3-8.2) g/dL Albumin 4.2 (3.9-5) g/dL - Imaging CT scan - abdomen: report reviewed, image reviewed CT scan - pelvis: report reviewed, image reviewed US - abdomen: report reviewed, image reviewed Assessment and Plan 30-year-old female with right upper quadrant pain likely due to symptomatic cholelithiasis possible cholecystitis. Patient is afebrile and stable with no leukocytosis. Will order MRCP to evaluate biliary tree due to elevated bilirub in and alkaline phosphatase. Discussed condition at length with patient including various treatment options and prognosis. If MRCP is positive with continued trending up of liver enzymes will consult GI for possible ERCP. At this time patient is undecided if she would like her gallbladder removed during this admission if she clinically improves. We will continue to follow-up labs and imaging studies.
[2021-04-02] MEDS: SODIUM CHLORIDE 0.9% 1000 ML 1,000 ML IV SCH (17:38)
[2021-04-02] MEDS: oxyCODONE /ACETAMINOPHEN 5-325MG TAB PO PRN (21:03)
[2021-04-03] MEDS: oxyCODONE /ACETAMINOPHEN 5-325MG TAB PO PRN ×2 (04:33→14:48)
[2021-04-03] MEDS: SODIUM CHLORIDE 0.9% 1000 ML 1,000 ML IV SCH ×2 (09:15→22:20)
[2021-04-03 09:19] LABS: Alanine Aminotransferase 142 units/L (7-56); Albumin 3.6 g/dL (3.9-5); BUN/Creatinine Ratio 10; Blood Urea Nitrogen 8 mg/dL (7-17); Calcium 8.7 mg/dL (8.4-10.2); Hemolysis Index 6
--- NOTE | 2021-04-03 09:47 | Electrocardiograph Report ---
[facility] Test Date: 2021-04-02 Test Time: 08:40:22 Pat Name: GISSEL SNYDER Department: Room: A387 Gender: F Driver Guard: TEREZA : 1990 Requested By: ERNESTINA WALKER Order Number: [id number] Reading MD: Mayo Portillo Measurements Intervals [place] Rate: 73 P: 62 SD: 136 QRS: 63 QRSD: 90 T: 17 QT: 390 QTc: 430 Interpretive Statements Sinus rhythm No previous ECG available for comparison Electronically Signed On 04-03-2021 9:47:04 EDT by Mayo Portillo
--- NOTE | 2021-04-03 10:57 | Progress Note ---
Assessment and Plan Assessment and plan: Symptomatic cholelithiasis Current Visit: Yes Status: Acute Plan to address problem: CT scan abdomen and pelvis, serial abdominal exam, abdominal ultrasound, supportive care, further care and evaluation as per surgical team. Disorder of appendix Current Visit: Yes Status: Acute Plan to address problem: CT scan abdomen and pelvis, supportive care, surgical team consulted. Continue management as per team Metabolic acidosis Current Visit: Yes Status: Acute Plan to address problem: BMP, IV fluid resuscitation therapy, repeat BMP in a.m. Elevated liver function tests Current Visit: Yes Status: Acute Plan to address problem: Supportive care, CT scan abdomen and pelvis, abdominal ultrasound, continue medical management. UTI Ceftriaxone DVT prophylaxis Current Visit: Yes Status: Acute Plan to address problem: SCD to bilateral lower extremities while in bed, patient is ambulatory 04/03/21 Patient presented with abd pain. Imaging shows Cholelithiasis. She was seen by Surgeon. For MRCP today to determine management plan. Also has UTI. Start Ceftriaxone. History Interval history: RUQ abdominal pain Hospitalist Physical - Physical exam Narrative exam: Gen: Not in acute distress, lying in bed, obese HEENT:Normocephalic,atraumatic Neck:supple, No JVD Lungs:clear to auscultation bilaterally, no wheeze Heart:S1 and S2 reg, no murmurs, rubs or gallop Abd:soft, mild tender RUQ, non distended, normal bowel sounds Ext; No edema, no clubbing, no cyanosis Neuro:Awake,alert, moves all ext, - Constitutional Vitals: Temp Pulse Resp BP Pulse Ox 99.0 F 63 17 103/60 98 04/03/21 04:35 04/03/21 04:35 04/03/21 05:33 04/03/21 04:35 04/03/21 09:43 General appearance: Present: mild distress Results - Labs CBC & Chem 7: 04/02/21 08:09 04/03/21 08:30 Labs: Laboratory Last Values WBC 8.8 K/mm3 (4.5-11.0) 04/02/21 08:09 RBC 4.37 M/mm3 (3.65-5.03) 04/02/21 08:09 Hgb 13.2 gm/dl (10.1-14.3) 04/02/21 08:09 Hct 39.1 % (30.3-42.9) 04/02/21 08:09 MCV 89 fl (79-97) 04/02/21 08:09 MCH 30 pg (28-32) 04/02/21 08:09 MCHC 34 % (30-34) 04/02/21 08:09 RDW 14.0 % (13.2-15.2) 04/02/21 08:09 Plt Count 426 K/mm3 (140-440) 04/02/21 08:09 Lymph % (Auto) 29.3 % (13.4-35.0) 04/02/21 08:09 [place] % (Auto) 8.0 % (0.0-7.3) H 04/02/21 08:09 Eos % (Auto) 0.6 % (0.0-4.3) 04/02/21 08:09 Baso % (Auto) 0.6 % (0.0-1.8) 04/02/21 08:09 Lymph # (Auto) 2.6 K/mm3 (1.2-5.4) 04/02/21 08:09 [place] # (Auto) 0.7 K/mm3 (0.0-0.8) 04/02/21 08:09 Eos # (Auto) 0.1 K/mm3 (0.0-0.4) 04/02/21 08:09 Baso # (Auto) 0.0 K/mm3 (0.0-0.1) 04/02/21 08:09 Seg Neutrophils % 61.5 % (40.0-70.0) 04/02/21 08:09 Seg Neutrophils # 5.4 K/mm3 (1.8-7.7) 04/02/21 08:09 Sodium 138 mmol/L (137-145) 04/03/21 08:30 Potassium 4.0 mmol/L (3.6-5.0) 04/03/21 08:30 Chloride 102.3 mmol/L (98-107) 04/03/21 08:30 Carbon Dioxide 25 mmol/L (22-30) 04/03/21 08:30 Anion Gap 15 mmol/L 04/03/21 08:30 BUN 8 mg/dL (7-17) 04/03/21 08:30 Creatinine 0.8 mg/dL (0.6-1.2) 04/03/21 08:30 Estimated GFR > 60 ml/min 04/03/21 08:30 BUN/Creatinine Ratio 10 % 04/03/21 08:30 Glucose 83 mg/dL (65-100) 04/03/21 08:30 Lactic Acid 2.30 mmol/L (0.7-2.0) H* 04/02/21 09:26 Calcium 8.7 mg/dL (8.4-10.2) 04/03/21 08:30 Magnesium 2.20 mg/dL (1.7-2.3) 04/02/21 08:09 Total Bilirubin 1.00 mg/dL (0.1-1.2) 04/03/21 08:30 Direct Bilirubin 1.1 mg/dL (0-0.2) H 04/02/21 08:09 Indirect Bilirubin 1.6 mg/dL 04/02/21 08:09 AST 39 units/L (5-40) 04/03/21 08:30 ALT 142 units/L (7-56) H 04/03/21 08:30 Alkaline Phosphatase 146 units/L (35-129) H 04/03/21 08:30 Total Creatine Kinase 165 units/L (30-135) H 04/02/21 08:09 Total Protein 7.0 g/dL (6.3-8.2) 04/03/21 08:30 Albumin 3.6 g/dL (3.9-5) L 04/03/21 08:30 Albumin/Globulin Ratio 1.1 % 04/03/21 08:30 Lipase 29 units/L (13-60) 04/02/21 08:09 HCG, Quant < 2 mIU/mL (0-4) 04/02/21 08:09 Urine Color [place] (Yellow) 04/02/21 08:12 Urine Turbidity Clear (Clear) 04/02/21 08:12 Urine pH 5.0 (5.0-7.0) 04/02/21 08:12 Ur Specific [place] 1.032 (1.003-1.030) H 04/02/21 08:12 Urine Protein 100 mg/dl mg/dL (Negative) 04/02/21 08:12 Urine Glucose (UA) 50 mg/dL (Negative) 04/02/21 08:12 Urine Ketones Neg mg/dL (Negative) 04/02/21 08:12 Urine Blood Neg (Negative) 04/02/21 08:12 Urine Nitrite Neg (Negative) 04/02/21 08:12 Urine Bilirubin Mod (Negative) 04/02/21 08:12 Urine Ictotest Positive (Negative) 04/02/21 08:12 Urine Urobilinogen 4.0 mg/dL (<2.0) 04/02/21 08:12 Ur Leukocyte Esterase Mod (Negative) 04/02/21 08:12 Urine WBC (Auto) 74.0 /HPF (0.0-6.0) H 04/02/21 08:12 Urine RBC (Auto) 38.0 /HPF (0.0-6.0) 04/02/21 08:12 U Epithel Cells (Auto) 8.0 /HPF (0-13.0) 04/02/21 08:12 Urine Mucus 3+ /HPF 04/02/21 08:12 Urine Opiates Screen Negative 04/02/21 08:12 Urine Methadone Screen Negative 04/02/21 08:12 Acetaminophen 5.0 ug/mL (10.0-30.0) L 04/02/21 09:26 Ur Barbiturates Screen Negative 04/02/21 08:12 Ur Phencyclidine Scrn Negative 04/02/21 08:12 Ur Amphetamines Screen Negative 04/02/21 08:12 U Benzodiazepines Scrn Negative 04/02/21 08:12 Urine Cocaine Screen Negative 04/02/21 08:12 U Marijuana (THC) Screen Negative 04/02/21 08:12 Drugs of Abuse Note Disclamer 04/02/21 08:12 Hepatitis A IgM Ab Non-reactive (NonReactive) 04/02/21 09:26 Hep Bs Antigen Nonreactive (Negative) 04/02/21 09:26 Hep B Core IgM Ab Non-reactive (NonReactive) 04/02/21 09:26 Hepatitis C Antibody Non-reactive (NonReactive) 04/02/21 09:26 Microbiology: Microbiology 04/02/21 09:26 Peripheral/Venous Blood Culture - Preliminary NO GROWTH AFTER 24 HOURS 04/02/21 09:26 Peripheral/Venous Blood Culture - Preliminary NO GROWTH AFTER 24 HOURS 04/02/21 08:12 Urine,Clean Catch Urine Culture - Preliminary [place]/IV: Voiding Method Toilet Active Medications - Current Medications Current Medications: Generic Name Dose Route Start Last Admin Trade Name Fabianq PRN Reason Stop Dose Admin Acetaminophen 650 mg 04/02/21 12:37 Acetaminophen 325 Mg Tab PO Q4H PRN Pain MILD(1-3)/Fever >100.5/YODER Albuterol 2.5 mg 04/02/21 12:37 Albuterol 2.5 Mg/3 Ml Nebu IH Q4HRT PRN Shortness Of Breath Hydromorphone HCl 0.5 mg 04/03/21 08:13 Hydromorphone 1 Mg/1 Ml Inj IV Q4H PRN Pain , Severe (7-10) Sodium Chloride 1,000 mls @ 100 mls/hr 04/02/21 18:00 04/03/21 09:15 Nacl 0.9% 1000 Ml IV 100 mls/hr DIRECT VAN Administration Ondansetron HCl 4 mg 04/02/21 12:37 Ondansetron 4 Mg/2 Ml Inj IV Q8H PRN Nausea And Vomiting Oxycodone/Acetaminophen 1 tab 04/02/21 12:37 04/03/21 04:33 Oxycodone /Acetaminophen 5-325mg Tab PO 1 tab Q16H PRN Administration Pain, Moderate (4-6) Sodium Chloride 10 ml 04/02/21 22:00 04/03/21 09:15 Sodium Chloride 0.9% 10 Ml Flush Syringe IV 10 ml BID VAN Administration Sodium Chloride 10 ml 04/02/21 12:37 Sodium Chloride 0.9% 10 Ml Flush Syringe IV PRN PRN LINE FLUSH
[2021-04-03] MEDS: HYDROmorphone 1 MG/1 ML INJ IV PRN ×3 (11:54→22:19)
--- NOTE | 2021-04-03 13:22 | Magnetic Resonance Report ---
MRI ABDOMEN MRCP INDICATION / CLINICAL INFORMATION: RUQ pain w/ elevated liver enzymes. TECHNIQUE: Multiplanar, multisequence series were obtained through the abdomen. Coronal thin slab and radial MRC P images. COMPARISON: Ultrasound right upper quadrant and CT abdomen pelvis dated 04/02/2021 FINDINGS: LIVER: No significant abnormality. GALLBLADDER: There are multiple gallstones in the gallbladder measuring up to 1 cm. The gallbladder i s partially contracted with mild gallbladder wall edema. BILE DUCTS: The MRCP images demonstrate normal appearance of the common bile duct and intrahepatic du cts. No choledocholithiasis or abnormal dilatation. The CBD measures 4-5 mm. PANCREAS: No significant abnormality. Normal pancreatic duct on MRCP. SPLEEN: No significant abnormality. ADRENALS: No significant abnormality. RIGHT KIDNEY AND URETER: No significant abnormality. LEFT KIDNEY AND URETER: No significant abnormality. STOMACH AND VISUALIZED BOWEL: No significant abnormality. PERITONEUM: No free fluid. No free air. No fluid collection. LYMPH NODES: No significant adenopathy. AORTA and ARTERIES: No significant abnormality. IVC and VEINS: No significant abnormality. ADDITIONAL FINDINGS: None. SKELETAL SYSTEM: No significant abnormality. IMPRESSION: Cholelithiasis. No evidence for acute cholecystitis or choledocholithiasis. Signer Name: Bridger Neil Jr, MD Signed: 04/03/2021 1:18 PM Workstation Name: [id number]
--- NOTE | 2021-04-03 14:05 | Progress Note ---
Assessment and Plan 30-year-old female with right upper quadrant pain consistent with symptomatic cholelithiasis. Afebrile and stable. Multiple imaging and clinical picture does not show acute cholecystitis. Most of her liver enzymes have normalized. Discussed with patient her treatment options including surgery and nonsurgical options. At this time patient says that she is to talk to her mother to decide if she wants to have surgery during this admission with the knowledge that she may continue to have gallbladder attacks in the future. Patient expressed understanding. We will start patient on regular diet if she tolerates it with minimal to no pain medication patient says that she will make the decision to be discharged tomorrow versus day and have her gallbladder move this admission. Subjective Date of service: 04/03/21 Narrative: No acute events overnight. Patient says that her right upper quadrant abdominal pain is improved when she gets pain medicine, but when the medicine wears off the pain returns. She denies any nausea vomiting says that she is hungry. Patient had MRCP that was negative for any choledocholithiasis or acute cholecystitis. Objective Vital Signs - 12hr 04/03/21 04/03/21 04/03/21 04:35 05:33 09:43 Temperature 99.0 F Pulse Rate 63 Respiratory 16 17 Rate Blood Pressure 103/60 O2 Sat by Pulse 99 98 Oximetry - General physical appearance well developed, no distress, moderate pain - Eyes PERRL - ENT no hearing loss - Respiratory normal expansion, normal respiratory effort - Abdomen soft, not rebound, not guarding, not rigid, other (Tender to palpation right upper quadrant) - Neurologic normal coordination - Psychiatric oriented to time, oriented to person, oriented to place - Labs 04/02/21 08:09 04/03/21 08:30 Diabetes panel 04/03/21 Range/Units 08:30 Sodium 138 (137-145) mmol/L Potassium 4.0 (3.6-5.0) mmol/L Chloride 102.3 (98-107) mmol/L Carbon Dioxide 25 (22-30) mmol/L BUN 8 (7-17) mg/dL Creatinine 0.8 (0.6-1.2) mg/dL Glucose 83 (65-100) mg/dL Calcium 8.7 (8.4-10.2) mg/dL AST 39 (5-40) units/L ALT 142 H (7-56) units/L Alkaline Phosphatase 146 H (35-129) units/L Total Protein 7.0 (6.3-8.2) g/dL Albumin 3.6 L (3.9-5) g/dL Calcium panel 04/03/21 Range/Units 08:30 Calcium 8.7 (8.4-10.2) mg/dL Albumin 3.6 L (3.9-5) g/dL Pituitary panel 04/03/21 Range/Units 08:30 Sodium 138 (137-145) mmol/L Potassium 4.0 (3.6-5.0) mmol/L Chloride 102.3 (98-107) mmol/L Carbon Dioxide 25 (22-30) mmol/L BUN 8 (7-17) mg/dL Creatinine 0.8 (0.6-1.2) mg/dL Glucose 83 (65-100) mg/dL Calcium 8.7 (8.4-10.2) mg/dL Adrenal panel 04/03/21 Range/Units 08:30 Sodium 138 (137-145) mmol/L Potassium 4.0 (3.6-5.0) mmol/L Chloride 102.3 (98-107) mmol/L Carbon Dioxide 25 (22-30) mmol/L BUN 8 (7-17) mg/dL Creatinine 0.8 (0.6-1.2) mg/dL Glucose 83 (65-100) mg/dL Calcium 8.7 (8.4-10.2) mg/dL Total Bilirubin 1.00 (0.1-1.2) mg/dL AST 39 (5-40) units/L ALT 142 H (7-56) units/L Alkaline Phosphatase 146 H (35-129) units/L Total Protein 7.0 (6.3-8.2) g/dL Albumin 3.6 L (3.9-5) g/dL
[2021-04-04 04:39] VITALS: BP 103/56
[2021-04-04 05:31] LABS: Hematocrit 34.4 % (30.3-42.9); Hemoglobin 11.4 gm/dl (10.1-14.3); Mean Corpuscular HGB Conc 33 % (30-34); Mean Corpuscular Volume 90 fl (79-97); Platelet Count 344 K/mm3 (140-440); Red Blood Count 3.81 M/mm3 (3.65-5.03); Red Cell Distribution Width 13.7 % (13.2-15.2)
[2021-04-04 05:49] LABS: Alanine Aminotransferase 88 units/L (7-56); Albumin 3.4 g/dL (3.9-5); Blood Urea Nitrogen 9 mg/dL (7-17); Calcium 8.1 mg/dL (8.4-10.2); Hemolysis Index 0
[2021-04-04] MEDS: oxyCODONE /ACETAMINOPHEN 5-325MG TAB PO PRN (05:50)
[2021-04-04 05:56] LABS: BUN/Creatinine Ratio 13
--- NOTE | 2021-04-04 09:12 | Progress Note ---
Assessment and Plan 30-year-old female with right upper quadrant pain consistent with symptomatic cholelithiasis. Afebrile and stable. Multiple imaging and clinical picture does not show acute cholecystitis. Most of her liver enzymes have normalized. Discussed with patient her treatment options including surgery and nonsurgical options. Since patient decided to consider elective cholecystectomy, okay to discharge from surgery perspective today. Discussed with patient about avoiding trigger foods such as high-fat high grease content items. Patient can call my office to make an appointment [phone] to make an appointment to be seen in the been scheduled for cholecystectomy should she desire. Subjective Date of service: 04/04/21 Narrative: No acute events overnight. Patient says her pain is improved compared to admission however she still has intermittent right upper quadrant pain that is Aleve the pain medication. She denies any nausea vomiting. She says he thought about having surgery and at this time she prefers to be discharged and follow-up as an outpatient for elective surgery in the future. Objective Vital Signs - 12hr 04/03/21 04/04/21 21:22 04:26 Temperature 99.1 F 98.9 F Pulse Rate 78 85 Respiratory 16 16 Rate Blood Pressure 94/53 103/56 O2 Sat by Pulse 99 99 Oximetry - General physical appearance well developed, well nourished, no distress, no pain - Eyes PERRL - ENT no hearing loss - Respiratory normal expansion, normal respiratory effort - Abdomen soft, not distended, not rebound, not guarding, not rigid, other (Tender to deep palpation right upper quadrant.) - Neurologic normal coordination - Musculoskeletal normal gait - Psychiatric oriented to time, oriented to person - Labs 04/04/21 04:40 04/04/21 04:40 Diabetes panel 04/03/21 04/04/21 Range/Units 08:30 04:40 Sodium 138 136 L (137-145) mmol/L Potassium 4.0 3.5 L (3.6-5.0) mmol/L Chloride 102.3 102.2 (98-107) mmol/L Carbon Dioxide 25 22 (22-30) mmol/L BUN 8 9 (7-17) mg/dL Creatinine 0.8 0.7 (0.6-1.2) mg/dL Glucose 83 103 H (65-100) mg/dL Calcium 8.7 8.1 L (8.4-10.2) mg/dL AST 39 16 (5-40) units/L ALT 142 H 88 H (7-56) units/L Alkaline Phosphatase 146 H 124 (35-129) units/L Total Protein 7.0 6.4 (6.3-8.2) g/dL Albumin 3.6 L 3.4 L (3.9-5) g/dL Calcium panel 04/03/21 04/04/21 Range/Units 08:30 04:40 Calcium 8.7 8.1 L (8.4-10.2) mg/dL Albumin 3.6 L 3.4 L (3.9-5) g/dL Pituitary panel 04/03/21 04/04/21 Range/Units 08:30 04:40 Sodium 138 136 L (137-145) mmol/L Potassium 4.0 3.5 L (3.6-5.0) mmol/L Chloride 102.3 102.2 (98-107) mmol/L Carbon Dioxide 25 22 (22-30) mmol/L BUN 8 9 (7-17) mg/dL Creatinine 0.8 0.7 (0.6-1.2) mg/dL Glucose 83 103 H (65-100) mg/dL Calcium 8.7 8.1 L (8.4-10.2) mg/dL Adrenal panel 04/03/21 04/04/21 Range/Units 08:30 04:40 Sodium 138 136 L (137-145) mmol/L Potassium 4.0 3.5 L (3.6-5.0) mmol/L Chloride 102.3 102.2 (98-107) mmol/L Carbon Dioxide 25 22 (22-30) mmol/L BUN 8 9 (7-17) mg/dL Creatinine 0.8 0.7 (0.6-1.2) mg/dL Glucose 83 103 H (65-100) mg/dL Calcium 8.7 8.1 L (8.4-10.2) mg/dL Total Bilirubin 1.00 0.40 (0.1-1.2) mg/dL AST 39 16 (5-40) units/L ALT 142 H 88 H (7-56) units/L Alkaline Phosphatase 146 H 124 (35-129) units/L Total Protein 7.0 6.4 (6.3-8.2) g/dL Albumin 3.6 L 3.4 L (3.9-5) g/dL
--- NOTE | 2021-04-04 09:40 | Discharge Summary ---
Providers - Providers Date of Admission: 04/02/21 12:37 Date of discharge: 04/04/21 Attending physician: DONOVAN RIVERA 04/02/21 09:15 Consult to Physician [CONS] Urgent Comment: Consulting Provider: SIMON SÁNCHEZ Physician Instructions: Reason For Exam: acyute abd pain transaminits Primary care physician: DIETITIAN [facility]ERAPE[facility]IC Hospitalization Condition: Good Exam - Constitutional Vitals: Temp Pulse Resp BP Pulse Ox 98.9 F 85 16 103/56 99 04/04/21 04:26 04/04/21 04:26 04/04/21 04:26 04/04/21 04:26 04/04/21 04:26 Plan Weight Bearing Status: Weight Bear as Tolerated Diet: advance as tolerated Additional Instructions: Follow-up with Dr. Sánchez in 1 week Follow up with: PRIMARY CAREMD [Primary Care Provider] - 3-5 Days
[2021-04-04] MEDS: SODIUM CHLORIDE 0.9% 1000 ML 1,000 ML IV SCH (10:00)
[2021-04-04] MEDS ORDERED: cefTRIAXone/NS 1 GM/50 ML 1 GM/50 ML BAG IV SCH (10:00)
== END 2021-04-04 12:25 | disposition home or self-care (01) ==
LOC: ED 07:48 → 3A 12:37
PROVIDERS: ADMIT Internal Medicine; ATTEND Internal Medicine
DX: K80.20 Calculus of gallbladder without cholecystitis without obstruction (principal); R65.10 Systemic inflammatory response syndrome (SIRS) of non-infectious origin without acute organ dysfunction; K38.9 Disease of appendix, unspecified; R74.01 Elevation of levels of liver transaminase levels; E87.2 Acidosis; N12 Tubulo-interstitial nephritis, not specified as acute or chronic; N39.0 Urinary tract infection, site not specified; F17.210 Nicotine dependence, cigarettes, uncomplicated
CPT/HCPCS: 36415; 74177; 74181; 76705; 80048; 80053; 80074; 80076; 80307; 81001; 82140; 82550; 83690; 83735; 84702; 85025; 85027; 87040; 87086; 93005; 96361; 96365; 96366; 96367; 96375; 96376; 99285; G0378; J0696; J1170; J2405; J2543; J7030; J7120; Q9967; 80320; G0480

== ENCOUNTER 2021-04-11 04:24 | Emergency (ER) | payer OTHER ==
[2021-04-11] MEDS ORDERED: ONDANSETRON 4 MG/2 ML INJ IV ONE (05:03)
[2021-04-11] MEDS ORDERED: KETOROLAC 30 MG/1 ML INJ IV ONE (05:03)
[2021-04-11 05:44] LABS: Basophils % (Auto) 0.5 % (0.0-1.8); Eosinophils # (Auto) 0.1 K/mm3 (0.0-0.4); Hematocrit 36.3 % (30.3-42.9); Lymphocytes # (Auto) 4.3 K/mm3 (1.2-5.4); Lymphocytes % (Auto) 50.9 % (13.4-35.0); Mean Corpuscular HGB Conc 33 % (30-34); Mean Corpuscular Volume 90 fl (79-97); Monocytes # (Auto) 0.6 K/mm3 (0.0-0.8); Monocytes % (Auto) 7.1 % (0.0-7.3); Platelet Count 418 K/mm3 (140-440); Red Blood Count 4.04 M/mm3 (3.65-5.03); Red Cell Distribution Width 13.9 % (13.2-15.2)
[2021-04-11 06:07] LABS: Alanine Aminotransferase 17 units/L (7-56); Albumin 4.1 g/dL (3.9-5); Blood Urea Nitrogen 9 mg/dL (7-17); Calcium 8.9 mg/dL (8.4-10.2); Hemolysis Index 3
[2021-04-11 06:16] LABS: BUN/Creatinine Ratio 13; Bilirubin,Direct < 0.2 mg/dL (0-0.2)
[2021-04-11 06:20] LABS: INR 0.81 (0.87-1.13)
[2021-04-11] MEDS ORDERED: MORPHINE 4 MG/1 ML INJ IV ONE ×3 (06:29→06:42)
--- NOTE | 2021-04-11 06:35 | Emergency Department Report ---
HPI - General Chief Complaint: Abdominal Pain Time Seen by Provider: 04/11/21 06:16 - HPI HPI: 30-year-old -[place] female presents to the emergency department with complaint of upper abdominal pain, nausea and vomiting, that started again yesterday. The patient was admitted here from 04/03 to 04/04 for similar symptoms and was found to have cholelithiasis without cholecystitis or choledocholithiasis after having an inpatient MRCP. The patient says that she was feeling better until yesterday. She denies any fever, dysuria, vaginal bleeding or discharge, back pain, chest pain, shortness of breath. Currently her abdominal pain is 9 out of 10 in intensity. No known aggravating or alleviating factors. ED Past Medical Hx - Past Medical History Previous Medical History?: No Additional medical history: hxo kidney infection - Surgical History Past Surgical History?: No - Social History Smoking Status: Never Smoker Substance Use Type: None - Medications Home Medications: Home Medications Medication Instructions Recorded Confirmed Last Taken Type Nitrofurantoin [place]/M-Cryst 100 mg PO Q12HR #14 capsule 04/11/21 Unknown Rx [Macrobid CAP] Ondansetron [Zofran Odt] 4 mg PO Q8HR PRN #15 tab.rapdis 04/11/21 Unknown Rx traMADoL [Ultram] 50 mg PO Q6HR PRN #10 tablet 04/11/21 Unknown Rx ED Review of Systems ROS: Stated complaint: ABD PAIN Other details as noted in HPI Comment: All other systems reviewed and negative Constitutional: denies: chills, fever Eyes: denies: eye pain, vision change ENT: denies: ear pain, throat pain Respiratory: denies: cough, shortness of breath Cardiovascular: denies: chest pain, palpitations Gastrointestinal: abdominal pain, nausea, vomiting Genitourinary: denies: dysuria, discharge Musculoskeletal: denies: back pain, arthralgia Skin: denies: rash, lesions Neurological: denies: headache, weakness Physical Exam - Physical Exam Vital Signs: Vital Signs 04/11/21 04:32 Temperature 98.4 F Pulse Rate 88 Respiratory 18 Rate Blood Pressure 127/84 [Left] O2 Sat by Pulse 98 Oximetry Physical Exam: GENERAL: The patient is well-developed well-nourished. HENT: Normocephalic. Atraumatic. Patient has moist mucous membranes. EYES: Extraocular motions are intact. NECK: Supple. Trachea is midline. CHEST/LUNGS: Clear to auscultation. There is no respiratory distress noted. HEART/CARDIOVASCULAR: Regular. There is no tachycardia. There is no murmur. ABDOMEN: Abdomen is soft. Upper abdominal tenderness to palpation worst in the right upper quadrant. No guarding. Patient has normal bowel sounds. There is no abdominal distention. SKIN: Skin is warm and dry. NEURO: The patient is awake, alert, and oriented. The patient is cooperative. The patient has no focal neurologic deficits. Normal speech. MUSCULOSKELETAL: There is no tenderness or deformity. There is no limitation range of motion. ED Course Vital Signs 04/11/21 04:32 Temperature 98.4 F Pulse Rate 88 Respiratory 18 Rate Blood Pressure 127/84 [Left] O2 Sat by Pulse 98 Oximetry ED Medical Decision Making - Lab Data Result diagrams: 04/11/21 05:25 04/11/21 05:25 Lab Results 04/11/21 04/11/21 04/11/21 Range/Units 05:25 05:25 05:25 WBC 8.4 (4.5-11.0) K/mm3 RBC 4.04 (3.65-5.03) M/mm3 Hgb 12.0 (10.1-14.3) gm/dl Hct 36.3 (30.3-42.9) % MCV 90 (79-97) fl MCH 30 (28-32) pg MCHC 33 (30-34) % RDW 13.9 (13.2-15.2) % Plt Count 418 (140-440) K/mm3 Lymph % (Auto) 50.9 H (13.4-35.0) % [place] % (Auto) 7.1 (0.0-7.3) % Eos % (Auto) 1.0 (0.0-4.3) % Baso % (Auto) 0.5 (0.0-1.8) % Lymph # (Auto) 4.3 (1.2-5.4) K/mm3 [place] # (Auto) 0.6 (0.0-0.8) K/mm3 Eos # (Auto) 0.1 (0.0-0.4) K/mm3 Baso # (Auto) 0.0 (0.0-0.1) K/mm3 Seg Neutrophils % 40.5 (40.0-70.0) % Seg Neutrophils # 3.4 (1.8-7.7) K/mm3 PT 12.2 (12.2-14.9) Sec. INR 0.81 L (0.87-1.13) Sodium 139 (137-145) mmol/L Potassium 3.8 (3.6-5.0) mmol/L Chloride 103.2 (98-107) mmol/L Carbon Dioxide 23 (22-30) mmol/L Anion Gap 17 mmol/L BUN 9 (7-17) mg/dL Creatinine 0.7 (0.6-1.2) mg/dL Estimated GFR > 60 ml/min BUN/Creatinine Ratio 13 % Glucose 105 H (65-100) mg/dL Calcium 8.9 (8.4-10.2) mg/dL Total Bilirubin 0.30 (0.1-1.2) mg/dL Direct Bilirubin < 0.2 (0-0.2) mg/dL Indirect Bilirubin 0.1 mg/dL AST 10 (5-40) units/L ALT 17 (7-56) units/L Alkaline Phosphatase 97 (35-129) units/L Total Protein 7.9 (6.3-8.2) g/dL Albumin 4.1 (3.9-5) g/dL Albumin/Globulin Ratio 1.1 % Amylase 50 (27-131) units/L Lipase 43 (13-60) units/L HCG, Quant (0-4) mIU/mL Urine Color (Yellow) Urine Turbidity (Clear) Urine pH (5.0-7.0) Ur Specific [place] (1.003-1.030) Urine Protein (Negative) mg/dL Urine Glucose (UA) (Negative) mg/dL Urine Ketones (Negative) mg/dL Urine Blood (Negative) Urine Nitrite (Negative) Urine Bilirubin (Negative) Urine Urobilinogen (<2.0) mg/dL Ur Leukocyte Esterase (Negative) Urine WBC (Auto) (0.0-6.0) /HPF Urine RBC (Auto) (0.0-6.0) /HPF U Epithel Cells (Auto) (0-13.0) /HPF Calcium Oxalate Crystal Urine Mucus /HPF 04/11/21 04/11/21 Range/Units 05:25 Unknown WBC (4.5-11.0) K/mm3 RBC (3.65-5.03) M/mm3 Hgb (10.1-14.3) gm/dl Hct (30.3-42.9) % MCV (79-97) fl MCH (28-32) pg MCHC (30-34) % RDW (13.2-15.2) % Plt Count (140-440) K/mm3 Lymph % (Auto) (13.4-35.0) % [place] % (Auto) (0.0-7.3) % Eos % (Auto) (0.0-4.3) % Baso % (Auto) (0.0-1.8) % Lymph # (Auto) (1.2-5.4) K/mm3 [place] # (Auto) (0.0-0.8) K/mm3 Eos # (Auto) (0.0-0.4) K/mm3 Baso # (Auto) (0.0-0.1) K/mm3 Seg Neutrophils % (40.0-70.0) % Seg Neutrophils # (1.8-7.7) K/mm3 PT (12.2-14.9) Sec. INR (0.87-1.13) Sodium (137-145) mmol/L Potassium (3.6-5.0) mmol/L Chloride (98-107) mmol/L Carbon Dioxide (22-30) mmol/L Anion Gap mmol/L BUN (7-17) mg/dL Creatinine (0.6-1.2) mg/dL Estimated GFR ml/min BUN/Creatinine Ratio % Glucose (65-100) mg/dL Calcium (8.4-10.2) mg/dL Total Bilirubin (0.1-1.2) mg/dL Direct Bilirubin (0-0.2) mg/dL Indirect Bilirubin mg/dL AST (5-40) units/L ALT (7-56) units/L Alkaline Phosphatase (35-129) units/L Total Protein (6.3-8.2) g/dL Albumin (3.9-5) g/dL Albumin/Globulin Ratio % Amylase (27-131) units/L Lipase (13-60) units/L HCG, Quant < 2 (0-4) mIU/mL Urine Color Yellow (Yellow) Urine Turbidity Hazy (Clear) Urine pH 5.0 (5.0-7.0) Ur Specific [place] 1.027 (1.003-1.030) Urine Protein 30 mg/dl (Negative) mg/dL Urine Glucose (UA) Neg (Negative) mg/dL Urine Ketones Neg (Negative) mg/dL Urine Blood Sm (Negative) Urine Nitrite Neg (Negative) Urine Bilirubin Neg (Negative) Urine Urobilinogen 2.0 (<2.0) mg/dL Ur Leukocyte Esterase Sm (Negative) Urine WBC (Auto) 29.0 H (0.0-6.0) /HPF Urine RBC (Auto) 16.0 (0.0-6.0) /HPF U Epithel Cells (Auto) 1.0 (0-13.0) /HPF Calcium Oxalate Crystal 3+ Urine Mucus 3+ /HPF - Radiology Data Radiology results: report reviewed ULTRASOUND ABDOMEN, LIMITED INDICATION / CLINICAL INFORMATION: Abd pain, hx of cholelithiasis. COMPARISON: MRI 04/03/2021, CT 04/02/2021 FINDINGS: PANCREAS: Visualized portion shows no significant abnormality. LIVER: No significant abnormality. GALLBLADDER: There are gallstones present without sonographic evidence of cholecystitis. Gallbladder wall measures approximately 3 mm. No pericholecystic fluid. BILE DUCTS: No significant abnormality. Common bile duct measures 3 mm. FREE FLUID: None. ADDITIONAL FINDINGS: None. IMPRESSION: 1. Cholelithiasis without sonographic evidence of cholecystitis. - Medical Decision Making This patient presents with a 1 day history of nausea, vomiting, abdominal pain and a recent diagnosis of cholelithiasis. There is some reproducible upper abdominal tenderness to palpation. Labs have been mostly unremarkable including CBC, metabolic panel but urinalysis shows a mild urinary tract infection. Ultrasound once again shows cholelithiasis without cholecystitis. Patient was given some IV fluid resuscitation, antiemetics, analgesia, and antibiotics. Upon reevaluation she is improved and able to pass an oral challenge. Vital signs reassuring including being afebrile. She appears safe for discharge home with outpatient follow-up with general surgery. She has been given a prescription for antiemetics, antibiotics, and pain medication. Critical Care Time: No Critical care attestation.: If time is entered above; I have spent that time in minutes in the direct care of this critically ill patient, excluding procedure time. ED Disposition Clinical Impression: Cholelithiasis UTI (urinary tract infection) Qualifiers: Urinary tract infection type: acute cystitis Hematuria presence: without hematuria Qualified Code(s): N30.00 - Acute cystitis without hematuria Disposition: HOME / SELF CARE / HOMELESS Is pt being admited?: No Condition: Stable Instructions: Cholelithiasis, Biliary Colic, Adult, Urinary Tract Infection, Adult, Gallbladder Eating Plan, Abdominal Pain (ED) Additional Instructions: Please follow-up with a primary care physician in the next few days. I am giving you a referral for a local general surgeon, Dr. Lake, to follow- up regarding your recurrent gallbladder pains from gallstones. Take all medications as prescribed. You have been prescribed a medication that is sedating and therefore should not be taken prior to driving, working, and responsible for children and in no way should be mixed with alcohol of any quantity. Return to the emergency department with any worsening of your symptoms, new or concerning symptoms not addressed during this current emergency department visit, or with any acute distress. Prescriptions: Nitrofurantoin [place]/M-Cryst [Macrobid CAP] 100 mg PO Q12HR #14 capsule traMADoL [Ultram] 50 mg PO Q6HR PRN #10 tablet PRN Reason: Pain Ondansetron [Zofran Odt] 4 mg PO Q8HR PRN #15 tab.rapdis PRN Reason: Nausea Referrals: PRIMARY CARE, [Primary Care Provider] - 3-5 Days MCKINLEY LAKE MD [Staff Physician] - 3-5 Days Time of Disposition: 10:58
[2021-04-11] MEDS ORDERED: MORPHINE 2 MG/1 ML INJ IV ONE (07:15)
--- NOTE | 2021-04-11 09:46 | Ultrasound Report ---
ULTRASOUND ABDOMEN, LIMITED INDICATION / CLINICAL INFORMATION: Abd pain, hx of cholelithiasis. COMPARISON: MRI 04/03/2021, CT 04/02/2021 FINDINGS: PANCREAS: Visualized portion shows no significant abnormality. LIVER: No significant abnormality. GALLBLADDER: There are gallstones present without sonographic evidence of cholecystitis. Gallbladder wall measures approximately 3 mm. No pericholecystic fluid. BILE DUCTS: No significant abnormality. Common bile duct measures 3 mm. FREE FLUID: None. ADDITIONAL FINDINGS: None. IMPRESSION: 1. Cholelithiasis without sonographic evidence of cholecystitis. Signer Name: Narendra Galindo MD Signed: 04/11/2021 9:42 AM Workstation Name: [email or web address]
[2021-04-11] MEDS ORDERED: SODIUM CHLORIDE 0.9% 1000 ML 1,000 ML IV ONE (09:49)
[2021-04-11] MEDS ORDERED: fentaNYL 100 MCG/2 ML INJ IV ONE (09:49)
[2021-04-11 09:55] LABS: Bilirubin,Urine NEG (Negative); Blood,Urine SM (Negative); Calcium Oxalate Crystals,Urine 3+; Color,Urine Yellow (Yellow); Mucus,Urine 3+ /HPF
[2021-04-11] MEDS ORDERED: cefTRIAXone/NS 1 GM/50 ML 1 GM/50 ML BAG IV ONE (10:14)
[2021-04-11 12:10] VITALS: BP 108/52
== END 2021-04-11 11:35 | disposition home or self-care (01) ==
LOC: ED 04:24
DX: K80.20 Calculus of gallbladder without cholecystitis without obstruction (principal); N39.0 Urinary tract infection, site not specified; Z79.899 Other long term (current) drug therapy
CPT/HCPCS: 36415; 76705; 80048; 80076; 81001; 82150; 83690; 84702; 85025; 85610; 87086; 96361; 96365; 96375; 99284; J0696; J1885; J2270; J2405; J3010; J7030; Q0162